=== PATIENT | female | born 1995 | race Caucasian/White ===

== ENCOUNTER 2018-04-30 02:30 | Emergency (ER) | payer OTHER ==
--- NOTE | 2018-04-30 02:45 | ED ---
Abdominal Pain/Female - HPI Summary HPI Summary: A 22 y/o F presents to ED with c/o RUQ pain, described as sharp and stabbing, onset 2030 yesterday and worsening at approximately 2300. The pain radiates upward and out in her abd. At bedside, the pain is a 4-5 out of 10. It was worse DIRECTOR TRADING. Pt says she ate a piece of cheesecake at 2000. Associated sx: nausea. She denies dysuria, diarrhea. She not had previous episodes of this type of pain. PMHx: PCOS. She denies abd issues. No abd surgeries. [facility]: November. - History of Current Complaint Chief Complaint: EDAbdPain Stated Complaint: ABD PAIN Hx Obtained From: Patient Onset/Duration: Gradual Onset, Lasting Hours, Still Present Timing: Constant Severity Initially: Severe Severity Currently: Moderate - 4-5 out of 10 at bedside Pain Intensity: 7 Pain Scale Used: 0-10 Numeric Location: Discrete At: RUQ Radiates: Yes Radiates to: Other - out and upward Character: Sharp - and stabbing Associated Signs and Symptoms: Positive: Nausea. Negative: Urinary Symptoms, Diarrhea Allergies/Adverse Reactions: Allergies Allergy/AdvReac Type Severity Reaction Status Date / Time Sulfa (Sulfonamide Allergy Rash And Verified 04/30/18 02:32 Antibiotics) Itching Tree Nuts Allergy Airway Verified 04/30/18 02:32 Obstruction Home Medications: Home Medications Levonorgestrel-Ethin Estradiol [Winsome 90-20 Mcg Tablet] 1 tab PO DAILY [History Confirmed 04/30/18] PMH/Surg Hx/FS Hx/Imm Hx Previously Healthy: Yes History: Reports: Other Problems/Disorders - PCOS Sensory History: Denies: Hx Legally Blind, Hx Deafness Neurological History: Denies: Hx Dementia Infectious Disease History: No Infectious Disease History: Denies: Traveled Outside the [place] in Last 30 Days - Family History Known Family History: Positive: Hypertension, Diabetes Negative: Cardiac Disease - Social History Occupation: Student Lives: With Family Alcohol Use: Weekly Hx Substance Use: No Hx Tobacco Use: No Review of Systems Negative: Fever Positive: Abdominal Pain, Nausea. Negative: Diarrhea Negative: dysuria All Other Systems Reviewed And Are Negative: Yes Physical Exam - Summary Physical Exam Summary: Appearance: Well-appearing, Well-nourished, lying in bed comfortably Skin: Warm, dry, no obvious rash Eyes: sclera anicteric, no conjunctival pallor ENT: mucous membranes moist, pharynx appears normal Neck: Supple, nontender Respiratory: Clear to auscultation, no signs of respiratory distress Cardiovascular: Normal S1, S2. No murmurs. Normal distal pulses in tibial and radial bilaterally. Abdomen: Soft, RUQ tenderness with no peritoneal sign, normal active bowel sounds present Musculoskeletal: Normal, Strength/ROM Intact Neurological: A&Ox3, awake and alert, mentation is normal, speech is fluent and appropriate Psychiatric: affect is normal, does not appear anxious or depressed Triage Information Reviewed: Yes Vital Signs On Initial Exam: Initial Vitals Temp Pulse Resp BP Pulse Ox 99.1 F 83 16 123/72 99 04/30/18 02:30 04/30/18 02:30 04/30/18 02:30 04/30/18 02:30 04/30/18 02:30 Vital Signs Reviewed: Yes Diagnostics - Vital Signs Vital Signs Temp Pulse Resp BP Pulse Ox 04/30/18 02:30 99.1 F 83 16 123/72 99 - Laboratory Result Diagrams: 04/30/18 02:50 04/30/18 02:50 Lab Statement: Any lab studies that have been ordered have been reviewed, and results considered in the medical decision making process. Re-Evaluation - Re-Evaluation 1 Re-Evaluation Time: 04:10 Change: Improved Comment: Discussing lab results. Pt feeling better after IV fluids, Zofran and Toradol. Abdominal Pain Fem Course/Dx - Course Course Of Treatment: Pt is a 22 y/o F presenting with RUQ pain, described as sharp, onset 2030 yesterday and worsening at approximately 2300. Pt says she ate a piece of cheesecake at 1999. Denies previous abd issues and surgeries. [facility]: November. Lab work and UA results are unremarkable. Pt will be signed out to Dr. Perez at shift change pending gallbladder U/S. - Diagnoses Provider Diagnoses: Gallstones, Biliary colic Discharge - Sign-Out/Discharge Documenting (check all that apply): Sign-Out Patient Signing out patient TO: Taj Perez - gallbladder U/S - Discharge Plan Condition: Improved Disposition: HOME Prescriptions: oxyCODONE/Acetamin 5/325 MG* [Percocet 5/325 TAB*] 1 tab PO Q4H PRN #15 tab MDD 6 PRN Reason: Pain - Severe Patient Education Materials: Biliary Colic (ED), Gallstones (ED), Low Fat Diet (ED) Referrals: Mookie Roach MD [Medical Doctor] - Additional Instructions: Call Dr. Roach's office, surgeon, and follow up with him. RETURN TO THE EMERGENCY DEPARTMENT FOR CHANGING OR WORSENING SYMPTOMS. - Billing Disposition and Condition Condition: IMPROVED Disposition: Home - Attestation Statements Document Initiated by Nickibaileen: Yes Documenting Scribe: Oral Rivera Provider For Whom Dandy is Documenting (Include Credential): Dr. Sin Lundberg MD Scribe Attestation: I, jayjay Pedroza for Dr. Sin Lundberg MD on 05/04/18 at 0738. Scribe Documentation Reviewed: Yes Provider Attestation: The documentation as recorded by the Oral benavides accurately reflects the service I personally performed and the decisions made by me, Dr. Sin Lundberg MD Status of Scribe Document: Viewed
[2018-04-30] MEDS ORDERED: Ondansetron ODT TAB* 4 MG SL ONE (02:48)
[2018-04-30] MEDS ORDERED: Ketorolac INJ* 30 MG/ML 1 ML VIAL IV PUSH ONE (02:48)
[2018-04-30] MEDS ORDERED: NS 0.9% 1000 ML* 1,000 ML IV ONE (02:48)
[2018-04-30 02:58] LABS: ABS Basophils 0.1 10^3/ul (0-0.2); ABS Eosinophils 0.1 10^3/ul (0-0.6); ABS Lymphocytes 2.9 10^3/ul (1.0-4.8); ABS Monocytes 0.7 10^3/ul (0-0.8); ABS Neutrophils 7.2 10^3/ul (1.5-7.7); ABS Nucleated RBC 0 10^3/ul; Eosinophil % 1.2 %; Hematocrit 41 % (35-47); Hemoglobin 13.5 g/dl (12.0-16.0); Lymphocyte % 26.5 %; Mean Corpuscular HGB Conc 33 g/dl (31-36); Mean Corpuscular Hemoglobin 27 pg (27-31); Mean Corpuscular Volume 82 fL (80-97); Nucleated Red Blood Cells % 0; Platelet Count 258 10^3/ul (150-450); Red Blood Count 4.98 10^6/ul (4.00-5.40); Red Cell Distribution Width 14 % (10.5-15)
[2018-04-30 03:13] LABS: Albumin 3.7 g/dL (3.2-5.2); Albumin/Globulin Ratio 1.2 (1-3); BUN/Creatinine Ratio 11.9 (8-20); Calcium 9.1 mg/dL (8.6-10.3); EGFR Non-African American 86.4 (>60); Globulin 3.1 g/dL (2-4); Total Bilirubin 0.2 mg/dL (0.2-1.0); Total Protein 6.8 g/dL (6.4-8.9)
[2018-04-30 03:20] LABS: HCG Pregnancy 2.1 mIU/mL
[2018-04-30 04:30] LABS: Urine Appearance Clear; Urine Bilirubin Negative (Negative); Urine Blood Negative (Negative); Urine Color Straw; Urine Glucose Negative (Negative); Urine Ketones Negative (Negative); Urine Nitrite Negative (Negative); Urine Protein Negative (Negative); Urine Specific Gravity 1.005 (1.010-1.030); Urine Urobilinogen Negative (Negative)
--- NOTE | 2018-04-30 07:26 | ED ---
Progress - Progress Note Progress Note: This pt was signed out by Dr. Lundberg at shift change, pending disposition, awaiting gallbladder US. Gallbladder US, as read by radiologist IMPRESSION: Cholelithiasis without sonographic evidence of biliary obstruction or acute inflammatory change. Dr. Perez has reviewed this report. Re-Evaluation - Re-Evaluation 1 Re-Evaluation Time: 10:32 Change: Improved Comment: Pt is feeling better. She has mild tenderness in the RUQ. Pt will be discharged home with follow up from surgery. Course/Dx - Course Course Of Treatment: This pt was signed out by Dr. Lundberg at shift change. Gallbladder US shows cholelithiasis without sonographic evidence of biliary obstruction or acute inflammatory change. On re-evaluation pt is feeling better and has mild tenderness in the RUQ. Pt will be discharged home with follow up from surgery. She will be given a prescription for Percocet. Pt was also given instructions for a low fat diet. Pt was advised to return to the ED for any worsening or new symptoms. - Diagnoses Provider Diagnoses: Gallstones, Biliary colic Discharge - Sign-Out/Discharge Documenting (check all that apply): Patient Departure - Discharge home, Receiving Sign-Out Receiving patient FROM: Sin Lundberg - Discharge Plan Condition: Improved Disposition: HOME Prescriptions: oxyCODONE/Acetamin 5/325 MG* [Percocet 5/325 TAB*] 1 tab PO Q4H PRN #15 tab MDD 6 PRN Reason: Pain - Severe Patient Education Materials: Biliary Colic (ED), Gallstones (ED), Low Fat Diet (ED) Referrals: Mookie Roach MD [Medical Doctor] - Additional Instructions: Call Dr. Roach's office, surgeon, and follow up with him. RETURN TO THE EMERGENCY DEPARTMENT FOR CHANGING OR WORSENING SYMPTOMS. - Attestation Statements Document Initiated by Scribe: Yes Documenting Scribe: Roseline Garza Provider For Whom Scribe is Documenting (Include Credential): Taj Perez MD Scribe Attestation: Roseline Smith, scribed for Taj Perez MD on 04/30/18 at 1036. Status of Scribe Document: Ready
[2018-04-30 10:41] VITALS: BP 124/63
== END 2018-04-30 10:52 | disposition home or self-care (01) ==
LOC: ED 02:30
DX: K80.80 Other cholelithiasis without obstruction (principal); K80.50 Calculus of bile duct without cholangitis or cholecystitis without obstruction; R10.11 Right upper quadrant pain; R11.0 Nausea; Z88.2 Allergy status to sulfonamides
CPT/HCPCS: 36415; 76705; 80053; 81003; 83690; 84702; 85025; 96361; 96374; 99284; A9270-GY; J1885

== ENCOUNTER 2018-11-06 08:40 | Emergency (ER) | payer OTHER ==
--- OUTSIDE RECORDS SUMMARY | 2018-11-06 08:45 | XMS REPORT | Continuity of Care Document ---
:1995 Author Organization [facility] Address [address], [place] [phone] Phone Care Team Providers Name Role Phone Opal Richardson NP Unavailable Unavailable Allergies, Adverse Reactions, Alerts Substance Reaction Status Sulfa (Sulfonamide Antibiotics) Active latex Active Medications Medication Instructions Dosage Effective Dates Status Comments (start - stop) HYDROXYZINE HCL Not Available - Active (unknown strength) Problems Condition Effective Dates (start - Clinical Status Comments stop) Encounter for oth general cnsl and - advice on contraception Human immunodeficiency virus [HIV] - counseling Encounter for oth screening for malignant neoplasm of breast Encounter for screening for malignant neoplasm of cervix Encntr for ob/gyn nurse exam (general) (routine) w/o abn findings Procedures Procedure Date PREVENTIVE COUNSELING, Under 8 Minutes SUREPATH PREV VISIT, NEW, AGE 18-39 BLOOD PRESSURE Height/Weight BREAST EXAM OTHER Medical Services Contraceptive Career Advisor.Svc. Other Career Advisor.Svc. STI Results Test Name Date and Time Measure Units Reference Range Abnormal Flag Status Comments No information Advance Directives Directive Yes / No Effective Date File Name No information Encounters Encounter Practice Location Reason(s) Diagnoses Date Provider Providers Description For Visit Copied on Encounter PREV VISIT, [facility] Referring NEW, [facility] [place] Person immunodeficiency 3-[address]. Provider : 18-39 [place] Visit virus [HIV] [address] (chief counselingEncounter [facility], [address] complaint) for oth general [address], [address] cnsl and advice on [place], [address], [address], contraception[place], [place], [place], [place] [address]. [place], [address]. [phone], screening for tel: tel: [place] malignant neoplasm [phone] tel: of breastEncounter [phone] for screening for malignant neoplasm of cervixEncntr for ob/gyn nurse exam (general) (routine) w/o abn findings Family History Family Member Diagnosis Age At Onset Mother Venous thromboembolism 1st degree relative No hx of cancer of breast, colon, endometrium or ovary 1st degree relative No hx of osteoporosis 1st degree relative No hx of coronary heart disease (female <65, male <55) Immunizations Vaccine Date Status Comments No information Payers Payer name Insurance type Covered libertarian ID Authorization(s) [facility] [id number] Social History Type Description Quantity Date Captured Comments Alcohol Use Details Unknown Caffeine Use Details Unknown Tobacco Use Status Current non-smoker Smoking Status Never smoker Non-Smoking Tobacco : No Details Available : No Details Available 2018 Use Details Sex Female Vital Signs Date / Height Weight BMI Pulse Blood Temperature Respiratory Body Head BMI Pulse Inhaled Time: Rate Pressure Rate Surface Circumference percentile Ox Ox Area 67.00 246.00 38.5 in lbs 3 mm[Hg] 2:10 kg/m PM eter (2) Chief Complaint And Reason For Visit Most recent encounter only, dated '10/08/2018 14:00'. Well Person Visit ( chief complaint) Reason For Referral Reason For Referral No information Plan Of Treatment Date Type Action Status No information History Of Present Illness Encounter Date Complaint History Of Present Illness No information Functional Status Date Functional Assessment No information Medications Administered Medication Instructions Dosage Effective Dates (start - stop) Status Comments No information Instructions Date Instruction Additional Information No information Assessments Type Assessment Date assessment Human immunodeficiency virus [HIV] counseling assessment Encounter for oth general cnsl and advice on contraception 2018 assessment Encounter for oth screening for malignant neoplasm of breast assessment Encounter for screening for malignant neoplasm of cervix 2018 assessment Encntr for ob/gyn nurse exam (general) (routine) w/o abn findings 2018 Goals Health Concern Goal Type Priority Status Date No information Medical Equipment Description Device [place] Device Identifier Effective Dates (start - stop ) Status No information Mental Status Date Cognitive Assessment No information Health Concerns Observation Date No information Concern Status Date No information
--- OUTSIDE RECORDS SUMMARY | 2018-11-06 08:45 | XMS REPORT | Continuity of Care Document ---
:1995 Author Organization [facility] Address [address], [place] [phone] Phone Care Team Providers Name Role Phone [...] for malignant neoplasm of cervix Encntr for curriculum assistant exam (general) (routine) w/o abn findings Procedures Procedure Date No information Results Test Name Date and Time Measure Units Reference Range Abnormal Flag Status Comments No information Advance Directives Directive Yes / No Effective Date File Name No information Encounters Encounter Practice Location Reason(s) Diagnoses Date Provider Providers Description For Visit Copied on Encounter [facility] [place] [address]. [place] 9 [address] [facility], [facility] [address] [place], , [place], [place], [address]. [id number], tel:[phone] tel:[phone] [facility] Referring [facility] [place] immunodeficiency . Provider: Mauri virus [HIV] 9 [address] counselingEncounter [facility], [address] for oth general , [address] cnsl and advice on [place], [address], [place], [place], [place], [place], [place] [address]. [place], [address]. [id number], screening for tel: tel: [place] malignant neoplasm [phone] tel: of breastEncounter [phone] for screening for malignant neoplasm of cervixEncntr for curriculum assistant exam (general) (routine) w/o abn findings Family History Family Member Diagnosis Age At Onset Mother Venous thromboembolism 1st degree relative No hx of cancer of breast, colon, endometrium or ovary 1st degree relative No hx of osteoporosis 1st degree relative No hx of coronary heart disease (female <65, male <55) Immunizations Vaccine Date Status Comments No information Payers Payer name Insurance type Covered constitution party ID Authorization(s) No information Social History Type Description Quantity Date Captured Comments Alcohol Use Details Unknown Caffeine Use Details Unknown Tobacco Use Status Unknown Smoking Status Never smoker Sex Female Vital Signs Date / Height Weight BMI Pulse Blood Temperature Respiratory Body Head BMI Pulse Inhaled Time: Rate Pressure Rate Surface Circumference percentile Ox Ox Area No information Chief Complaint And Reason For Visit No information Reason For Referral Reason For Referral No information Plan Of Treatment Date Type Action Status No information History Of Present Illness Encounter Date Complaint History Of Present Illness No information Functional Status Date Functional Assessment No information Medications Administered Medication Instructions Dosage Effective Dates (start - stop) Status Comments No information Instructions Date Instruction Additional Information No information Assessments Type Assessment Date No information Goals Health Concern Goal Type Priority Status Date No information Medical Equipment Description Device [place] Device Identifier Effective Dates (start - stop ) Status No information Mental Status Date Cognitive Assessment No information Health Concerns Observation Date No information Concern Status Date No information
[2018-11-06 08:48] VITALS: BP 133/76
[2018-11-06] MEDS ORDERED: Fluorescein Sodium TOPICAL* 1 MG TEST STRIP OPHTHALMIC ONE (08:54)
[2018-11-06] MEDS ORDERED: Tetracaine 0.5% OPTH.SOL 4 ML* 1 DROP BTL BOTH EYES ONE (08:54)
--- NOTE | 2018-11-06 09:21 | UC ---
Eye Complaint HPI - HPI Summary HPI Summary: She is complaining of irritation and itching to her right for the last day or 2. He's been no real discharge and was not matted shut this morning. Her vision is fine. - History of Current Complaint Chief Complaint: UCEye Stated Complaint: EYE COMPLAINT Time Seen by Provider: 11/06/18 08:53 Hx Obtained From: Patient Hx Last Menstrual Period: [id number] Onset/Duration: Gradual Onset Timing: Constant Severity Initially: Mild Severity Currently: Mild Pain Intensity: 0 Location of Injury: Conjunctiva Character: Foreign Body Sensation Aggravating Factor(s): Nothing Alleviating Factor(s): Nothing Associated Signs And Symptoms: Positive: Negative - Allergies/Home Medications Allergies/Adverse Reactions: Allergies Allergy/AdvReac Type Severity Reaction Status Date / Time Sulfa (Sulfonamide Allergy Rash And Verified 11/06/18 08:48 Antibiotics) Itching Tree Nuts Allergy Airway Verified 04/30/18 02:32 Obstruction Home Medications: Home Medications Escitalopram Oxalate [Lexapro 10 mg] 10 mg PO DAILY 11/06/18 [History Confirmed 11/06/18] Eszopiclone TAB(NF) [Lunesta TAB(NF)] 2 mg PO BEDTIME PRN 11/06/18 [History Confirmed 11/06/18] PMH/Surg Hx/FS Hx/Imm Hx - Additional Past Medical History Additional PMH: No contacts Previously Healthy: Yes - Surgical History Surgical History: Yes Surgery Procedure, [facility] - Family History Known Family History: Positive: Hypertension, Diabetes Negative: Cardiac Disease - Social History Alcohol Use: Weekly Substance Use Type: None Smoking Status (MU): Never Smoked Tobacco Review of Systems All Other Systems Reviewed And Are Negative: Yes Constitutional: Positive: Negative Skin: Positive: Negative Eyes: Positive: Eye Redness Physical Exam - Summary Physical Exam Summary: She is nontoxic in appearance with stable vital signs. Triage Information Reviewed: Yes Appearance: Well-Appearing Vital Signs: Initial Vital Signs Temp 98.7 F 11/06/18 08:43 Pulse 67 11/06/18 08:43 Resp 18 11/06/18 08:43 BP 133/76 11/06/18 08:43 Pulse Ox 99 11/06/18 08:43 Eyes: Positive: Conjunctiva Inflamed - Mildly - No Fluoroscein Pick-Up Eye Complaint Course/Dx - Course Course Of Treatment: Possible early conjunctivitis allergic or infectious. I will cover her with ABx. - Differential Dx/Diagnosis Provider Diagnosis: Conjunctivitis Discharge - Sign-Out/Discharge Documenting (check all that apply): Patient Departure All imaging exams completed and their final reports reviewed: No Studies - Discharge Plan Condition: Stable Disposition: HOME Patient Education Materials: Conjunctivitis (ED) Referrals: Jr Ritchie MD [Medical Doctor] - - Billing Disposition and Condition Condition: STABLE Disposition: Home
== END 2018-11-06 09:59 | disposition home or self-care (01) ==
LOC: UCEAST 08:40
DX: H10.9 Unspecified conjunctivitis (principal); Z88.2 Allergy status to sulfonamides
CPT/HCPCS: 99212; A9270-GY; G0463